=== PATIENT | female | born 1980 | race Caucasian/White ===

== ENCOUNTER 2016-11-27 08:35 | Inpatient (IN) ==
[2016-11-27] MEDS ORDERED: PEPCID IV PRN (08:56)
[2016-11-27] MEDS ORDERED: LR 500 ML IV ONE (08:56)
[2016-11-27] MEDS ORDERED: TYLENOL PO PRN (08:56)
[2016-11-27] MEDS ORDERED: REGLAN PO ONE (08:56)
[2016-11-27] MEDS ORDERED: STADOL IV PRN (08:56)
[2016-11-27] MEDS ORDERED: KEFZOL 1 GM/D5W 50 ML IV PRN (08:56)
[2016-11-27] MEDS ORDERED: PEPCID PO PRN (08:56)
[2016-11-27] MEDS ORDERED: ZOFRAN IV PRN (08:56)
[2016-11-27] MEDS ORDERED: PEPCID PO ONE (08:56)
[2016-11-27] MEDS ORDERED: SODIUM CHLORIDE 0.9% INJ SCH (09:00)
[2016-11-27] MEDS ORDERED: PITOCIN 30 UNITS/LR 500 ML IV SCH (09:00)
[2016-11-27] MEDS: LR 1,000 ML IV SCH ×3 (09:15→10:28)
[2016-11-27 09:22] LABS: MANUAL DIFF NEEDED? NO
[2016-11-27 09:22] LABS: URINE SOURCE VOIDED
[2016-11-27 09:25] LABS: BILIRUBIN URINE NEGATIVE (NEGATIVE); BLOOD URINE TRACE (NEGATIVE); CLARITY SL. CLOUDY (CLEAR); COLOR YELLOW; GLUCOSE URINE NEGATIVE (NEGATIVE); LEUKOCYTES URINE 2+ (NEGATIVE); NITRITE URINE NEGATIVE (NEGATIVE); PROTEIN URINE NEGATIVE (NEGATIVE); SP GRAVITY URINE 1.005; UROBILINOGEN URINE NORMAL
[2016-11-27 09:26] LABS: BASO% 0.2 % (0.0-0.8); EOS# 0.03 X1000 (0.0-0.7); EOS% 0.3 % (0.0-10.0); HEMATOCRIT 36.7 % (37.0-47.0); HEMOGLOBIN 12.8 g/dL (12.0-16.0); IMM GRAN# 0.06 X1000 (0.0-0.04); IMM GRAN% 0.6 % (0.0-0.5); LYMPH# 1.56 X1000 (1.2-3.4); LYMPH% 15.8 % (20.5-51.1); MCH 29.9 PG (27-31); MCHC 34.9 g/dL (33-37); MCV 85.7 FL (81-99); MONO# 0.52 X1000 (0.11-0.59); MONO% 5.3 % (1.7-9.3); MPV 11.1 FL (7.4-10.4); NEUT% 77.8 % (42.2-75.2); PLT 119 X1000 (130-400); RBC 4.28 XMIL (4.2-5.4)
[2016-11-27] MEDS ORDERED: FENTANYL-BUPIV-NS 2 MCG-0.1% 200 ML ONE (09:33)
[2016-11-27] MEDS ORDERED: XYLOCAINE-MPF 1% 5 ML ONE (09:33)
[2016-11-27] MEDS ORDERED: XYLOCAINE-MPF 1% INJ ONE (09:45)
[2016-11-27] MEDS ORDERED: FENTANYL-BUPIV-NS 2 MCG-0.1% 200 ML EPIDURAL ONE (10:00)
[2016-11-27] MEDS ORDERED: XYLOCAINE-MPF 1% ONE (10:33)
[2016-11-27] MEDS ORDERED: MARCAINE 0.5% PF ONE (10:34)
[2016-11-27] MEDS ORDERED: HYDROXYZINE PO PRN (12:09)
[2016-11-27] MEDS ORDERED: NORCO-10 PO PRN (12:09)
[2016-11-27] MEDS ORDERED: BENADRYL PO PRN (12:09)
[2016-11-27] MEDS ORDERED: MOTRIN PO PRN (12:09)
[2016-11-27] MEDS ORDERED: NORCO-5 PO PRN (12:09)
[2016-11-27] MEDS ORDERED: PITOCIN 30 UNITS/LR 500 ML IV ONE (12:09)
[2016-11-27] MEDS ORDERED: BOOSTRIX VACCINE IM ONE (12:09)
[2016-11-27] MEDS ORDERED: XYLOCAINE-MPF 1% INJ PRN (12:09)
[2016-11-27] MEDS ORDERED: CYTOTEC PO PRN (12:09)
[2016-11-27] MEDS ORDERED: M-M-R II VACCINE SUBQ ONE (12:09)
[2016-11-27] MEDS ORDERED: BENADRYL IV PRN (12:09)
[2016-11-27] MEDS ORDERED: PITOCIN IM PRN (12:09)
[2016-11-27] MEDS ORDERED: AMBIEN PO PRN (12:09)
[2016-11-27] MEDS ORDERED: PERI MEDS (DERMOPLAST/NUPERCAINAL/TUCKS) MISC PRN (12:09)
[2016-11-27] MEDS ORDERED: MINERAL OIL MISC PRN (12:09)
[2016-11-27] MEDS ORDERED: HYDROXYZINE IM PRN (12:09)
[2016-11-27] MEDS ORDERED: PITOCIN 20 UNITS/LR 1,000 ML IV SCH (12:15)
[2016-11-27] MEDS ORDERED: PERICOLACE PO SCH (21:00)
[2016-11-28 06:43] LABS: HEMATOCRIT 34.7 % (37.0-47.0); HEMOGLOBIN 11.5 g/dL (12.0-16.0); MCHC 33.1 g/dL (33-37); MCV 87.6 FL (81-99); MPV 11.7 FL (7.4-10.4); RBC 3.96 XMIL (4.2-5.4)
[2016-11-28] MEDS: PRECARE PO SCH (21:19)
[2016-11-29 02:08] VITALS: BP 109/63
[2016-11-29] MEDS: PRECARE PO SCH (11:22)
== END 2016-11-29 12:15 | disposition home or self-care (01) | DRG 775 ==
LOC: P.OPLD 08:35 → P.LD 08:36 → P.OPLD 09:00 → P.LD 09:00
PROVIDERS: ADMIT Obstetrics & Gynecology; ATTEND Obstetrics & Gynecology
PROC: 10907ZC Drainage of Amniotic Fluid, Therapeutic from Products of Conception, Via Natural or Artificial Opening (ICD-10-PCS; 2016-11-27)
PROC: 0HQ9XZZ Repair Perineum Skin, External Approach (ICD-10-PCS; 2016-11-27)
PROC: 10E0XZZ Delivery of Products of Conception, External Approach (ICD-10-PCS; principal; 2016-11-27 12:40)
DX: O70.0 First degree perineal laceration during delivery (principal); Z23 Encounter for immunization; Z37.0 Single live birth; Z3A.39 39 weeks gestation of pregnancy
CPT/HCPCS: 59025; 81003; 85025; 85027; 86592; 86900; 86901; 90707; J7120; S0020